=== PATIENT | male | born 1990 | race Caucasian/White ===

== ENCOUNTER 2016-10-31 09:50 | Emergency (ER) | payer MEDICAID | END 2016-10-31 11:00 | disposition home or self-care (01) | LOC: D.ER 09:50 | DX: S81.812A Laceration without foreign body, left lower leg, initial encounter (principal); W26.8XXA Contact with other sharp object(s), not elsewhere classified, initial encounter; Y93.89 Activity, other specified; Y92.89 Other specified places as the place of occurrence of the external cause; F17.200 Nicotine dependence, unspecified, uncomplicated ==